=== PATIENT | female | born 1980 | race Caucasian/White ===

== ENCOUNTER 2016-10-20 11:59 | Emergency (ER) | payer BC ==
[~2016-10-20] VITALS: Ht 154.9 cm; Wt 100.0 kg
[~2016-10-20 11:59] MED LIST: ACET500C5 PO
[2016-10-20 12:00] VITALS: Ht 154.9 cm; Wt 100.0 kg
--- NOTE | 2016-10-20 13:14 | RADRPT ---
PROCEDURE: CT Brain without contrast. CLINICAL INDICATION: Compression. Dilated left pupil. TECHNIQUE: A CT of the brain was performed on a multidetector CT scanner utilizing axial sections from the skull base through the vertex without contrast. Images were reviewed on a high-resolution [employer] workstation. Exam CTDI = 44.81 mGy and the DLP = 630.20 mGy-cm. One or more of the following dose reduction techniques were used: Automated exposure control Adjustment of the mA and/or kV according to patient size. Use of iterative reconstruction technique. COMPARISON: None available FINDINGS: There is no evidence of intracranial hemorrhage, mass effect or midline shift. No abnormal intra-ax ial or extra-axial fluid collections are seen. The density of the brain is normal and the moreno/whit e matter differentiation is well preserved. The osseous structures are unremarkable. Paranasal sinu ses are clear. IMPRESSION: 1. No intracranial hemorrhage, mass effect or midline shift. RPTAT: QQ .Claude Miller MD, MD Date Time Electronically viewed and signed by .Claude Miller MD, on 10/20/2016 13:14 .O/
--- NOTE | 2016-10-20 13:44 | ERD ---
ER Documentation Chief Complaint Date/Time DATE: 10/20/16 TIME: 13:38 Chief Complaint pt bib family with c/o left eye pupils larger than right, concussion 3 mon HPI 36-year-old female presents status post head injury approximately 2 weeks ago. She was seen and diagnosed with a facial abrasion. Patient presents today because she knows her left pupil may have been larger than her right pupil. It appears to have resolved and is normal now. She denies any visual changes or visual field deficits. She has a headache, vomiting, weakness, new neck pain, bowel or bladder incontinence. ROS All systems reviewed and are negative except as per history of present illness. Medications Home Meds Active Scripts Acetaminophen* (Tylophen*) 500 Mg Capsule, 1 CAP PO Q6H Y for PAIN AND OR ELEVATED TEMP, #20 CAP Prov:CLARISA BAKER NP 10/09/16 Allergies Allergies: Coded Allergies: No Known Allergy (Unverified , 10/09/16) PMhx/Soc History of Surgery: Yes (oral sx) Anesthesia Reaction: No Hx Neurological Disorder: No Hx Respiratory Disorders: Yes (asthma) Hx Cardiac Disorders: No Hx Psychiatric Problems: No Hx Miscellaneous Medical Probl: Yes (neck/back pain) Hx Alcohol Use: Yes (occasional) Hx Substance Use: No Hx Tobacco Use: No Smoking Status: Never smoker Physical Exam Vitals Vital Signs Date Time Temp Pulse Resp B/P Pulse Ox O2 Delivery O2 Flow Rate FiO2 10/20/16 12:00 97.2 60 18 143/80 99 Physical Exam Const: [] Alert, [id number] per Head: Atraumatic Eyes: Normal Conjunctiva. Pupils are reactive and equal bilaterally. Extraocular movements intact. ENT: Normal External Ears, Nose and Mouth. Neck: Full range of motion..~ No meningismus. Resp: Clear to auscultation bilaterally Cardio: Regular rate and rhythm, no murmurs Abd: Soft, non tender, non distended. Normal bowel sounds Skin: No petechiae or rashes Back: No midline or flank tenderness Ext: No cyanosis, or edema Neur: Awake and alert. Normal gait. Cranial nerves II through XII grossly intact Psych: Normal Mood and Affect Procedures/MDM Given the concern status post head injury of unequal pupils a CT brain was performed which was read as normal by the radiologist. Patient currently has no signs or symptoms of dilated pupils are abnormal neurologic findings. She may have a mild concussion there is no current evidence of bleeding, mass-effect , neurologic deficit, signs or symptoms of meningitis. She will treated further observation at home. The patient was stable with no new complaints during the ER course. Clinically, there is no current evidence to suggest meningitis, sepsis, acute abdomen, pneumonia, acute coronary syndrome, pulmonary embolism, or any other emergent condition appearing to require further evaluation or hospitalization. The patient should certainly return for any new or worsening symptoms per the aftercare instructions. They should otherwise follow-up with her primary care doctor for reevaluation this week. Departure Diagnosis: Primary Impression: Head injury Encounter type: initial encounter Qualified Code: S09.90XA - Head injury, initial encounter Patient Instructions: HEAD INJURY, No Wake-Up (Adult) Additional Instructions: CT read as normal today. Recheck for new or worsening symptoms with primary care doctor. ERIS ALFARO MD October 20, 2016 13:44
== END 2016-10-20 14:11 | disposition home or self-care (01) ==
LOC: FTE 11:59
DX: S09.90XA Unspecified injury of head, initial encounter (principal); J45.909 Unspecified asthma, uncomplicated; R40.2142 Coma scale, eyes open, spontaneous, at arrival to emergency department; R40.2252 Coma scale, best verbal response, oriented, at arrival to emergency department; R40.2362 Coma scale, best motor response, obeys commands, at arrival to emergency department; S06.0X0A Concussion without loss of consciousness, initial encounter; X58.XXXA Exposure to other specified factors, initial encounter; Y92.9 Unspecified place or not applicable
CPT/HCPCS: 70450